=== PATIENT | male | born 1960 | race Hispanic/Latino ===

== ENCOUNTER → 2019-06-28 | Outpatient (CLI) | payer BC | END | disposition home or self-care (01) | LOC: RAH 14:44 | PROVIDERS: ATTEND Orthopaedic Surgery Foot and Ankle Surgery | DX: M77.31 Calcaneal spur, right foot (principal); M85.861 Other specified disorders of bone density and structure, right lower leg; Z98.890 Other specified postprocedural states | CPT/HCPCS: 73700 ==